=== PATIENT | female | born 2000 | race Caucasian/White ===

== ENCOUNTER → 2021-11-04 14:29 | Outpatient (CLI) | payer OTHER, SELFPAY ==
--- NOTE | 2021-11-04 | PATH_ITS ---
Note [facility] Accession Number: [id number] TESTS RESULT FLAG UNITS REF RANGE LAB Clinician Provided Cytology Information No. of containers..01 Other (Miscellaneous) No. of containers..00 Previously Prepared Cytology Slide Source: [A] 01 LEFT THYROID NODULE DIAGNOSIS: [A] 01 LEFT THYROID NODULE SUSPICIOUS FOR MALIGNANCY. [place] CATEGORY V. SUSPICIOUS FOR PAPILLARY CARCINOMA. SPECIMEN CONSISTS OF FOLLICULAR CELLS WITH NUCLEAR ENLARGEMENT, NUCLEAR PALLOR WITH GROOVES. INTRANUCLEAR PSEUDOINCLUSIONS ARE RARE. 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 Pathologist ICD10: 01 R89.6 Signed out by: Beverly Coelho MD, Pathologist NPI- [id number] Performed by: Sundeep Rae, Customs Port Director ([facility]) Gross description: 30 CC, PINK, CLEAR RECIEVED: IN CYTOLYT WITH 5 ALCOHOL FIXED AND 5 QUICK STAINED SLIDES ALSO 1 RNA VIAL WAS RECEIVED. /[facility] 11/05/2021 0656 Local FLAG LEGEND: L-Low Normal,H-High Normal,LL-Alert Low,HH-Alert High <-Panic Low,>-Panic High,A-Abnormal,AA-Critical Abnormal Performed at: 01 =[facility] [address], [place] [address] Austen Rubi MD, Performed at: [facility] [address] [place] [address] [address], [place], [place] [id number] MD Austen Rubi MD Phone: [phone]
--- NOTE | 2021-11-04 14:32 | DI.US.S_ITS ---
PROCEDURE: US FINE NEEDLE ASPIRATION INDICATIONS: Nontoxic single thyroid nodule TECHNIQUE: The indications, alternatives, benefits, risks, and complications of the procedure were explained to the patient. Written informed consent was obtained and placed in the chart. The area of interest was examined sonographically and a site was chosen for ultrasound guided percutaneous sampling. The skin was prepared and draped in the usual fashion, and anesthetized with 1% lidocaine infiltrated from the skin down to the lesion. Multiple passes were then performed, with contents emptied into an appropriate pathology specimen container. A bandage was applied to the area of access at completion of the study. COMPARISON: Ultrasound from 10/09/2021 FINDINGS: Location(s) of lesion(s) sampled: Left thyroid nodule with multiple punctate echogenic foci. [place]: 25 gauge hypodermic needles. Number of passes: 5 Medications: 1% lidocaine for local anaesthesia. Complications: None. IMPRESSION: Successful ultrasound-guided left thyroid fine needle aspiration (N3 left), with cytology results pending. Dictated by: Luis Felipe Vigil M.D. on 11/04/2021 at 16:11 Approved by: Luis Felipe Vigil M.D. on 11/04/2021 at 16:13
== END ==
PROVIDERS: PCP Family Medicine; Referring Provider Family Medicine; Visit Provider Family Medicine
DX: E04.1 Nontoxic single thyroid nodule (principal)
CPT/HCPCS: 10005